=== PATIENT | female | born 1980 | race Caucasian/White ===

== ENCOUNTER 2017-09-19 14:32 | Outpatient (CLI) | payer MEDICAID | END 2017-09-19 23:59 | disposition home or self-care (01) | LOC: RAD 14:32 | PROVIDERS: ATTEND Physician Assistant Medical | DX: N13.30 Unspecified hydronephrosis (principal) | CPT/HCPCS: 76775 ==

== ENCOUNTER 2017-09-24 16:53 | Emergency (ER) | payer MEDICAID ==
[~2017-09-24] VITALS: Ht 165.1 cm; Wt 140.0 kg
[2017-09-24 17:36] LABS: BASOPHILS % (AUTO) 0 % (0-1); EOSINOPHILS # (AUTO) 0.3 X10'3 (0-0.9); EOSINOPHILS % (AUTO) 2.1 % (0-6); HEMOGLOBIN 13.8 g/dl (12.0-16.0); LYMPHOCYTES # (AUTO) 1.6 X10'3 (1.1-4.8); LYMPHOCYTES % (AUTO) 11.9 % (21-51); MEAN CORPUSCULAR HEMOGLOBIN 28.9 PG (27.0-31.0); MEAN CORPUSCULAR HGB CONC 34.4 % (33.0-36.5); MEAN CORPUSCULAR VOLUME 84.2 FL (78-98); MEAN PLATELET VOLUME 8.3 FL (7.4-10.4); MONOCYTES # (AUTO) 0.9 X10'3 (0-0.9); MONOCYTES % (AUTO) 6.4 % (2-12); NEUTROPHILS # (AUTO) 10.8 X10'3 (1.8-7.7); NEUTROPHILS % (AUTO) 79.6 % (42-75); PLATELET COUNT 263 X10'3 (140-440); RED BLOOD COUNT 4.75 X10'6 (4.20-5.60); RED CELL DISTRIBUTION WIDTH 13.6 % (11.5-14.5); WHITE BLOOD COUNT 13.5 X10'3 (4.5-11.0)
[2017-09-24 17:41] LABS: CLARITY,URINE SLIGHTLY CLOUDY (Clear); COLOR,URINE YELLOW (Yellow); GLUCOSE, URINE NEGATIVE (Neg); KETONES,URINE NEGATIVE (Neg); LEUKOCYTE ESTERASE ,URINE TRACE (Neg); NITRITES, URINE NEGATIVE (Neg); OCCULT BLOOD,URINE MODERATE (Neg); PH,URINE 5.5 (4.8-8.0); PROTEIN,URINE NEGATIVE (Neg); UROBILINOGEN,URINE 0.2 E.U/dL (0.2-1.0)
[2017-09-24 17:45] LABS: INR 0.9 INR; PROTHROMBIN TIME 9.4 SECONDS (9.0-12.0)
[2017-09-24 17:47] LABS: UA COLLECTION TYPE CLN CATCH MIDSTREAM
[2017-09-24 17:51] LABS: ALANINE AMINOTRANSFERASE 22 U/L (12-78); ALBUMIN 3.6 G/DL (3.4-5.0); ALBUMIN/GLOBULIN RATIO 0.8 (1.1-1.5); ALKALINE PHOSPHATASE 75 IU/L (46-116); ANION GAP 10 (8-16); ASPARTATE AMINO TRANSFERASE 14 U/L (10-37); BILIRUBIN,TOTAL 0.5 MG/DL (0.1-1.0); BLOOD UREA NITROGEN 19 MG/DL (7-18); BUN/CREATININE RATIO 14.6 (6.6-38.0); CALCIUM 9.2 MG/DL (8.5-10.1); CHLORIDE 102 MMOL/L (99-107); GLUCOSE 89 MG/DL (70-104); SODIUM 138 MMOL/L (135-145); TOTAL CARBON DIOXIDE 26.4 MMOL/L (24-32); TOTAL PROTEIN 8.2 G/DL (6.4-8.2); eGFR 46 ML/MIN
[2017-09-24 17:53] LABS: BACTERIA,URINE FEW /HPF (Neg); RBC,URINE NONE SEEN /HPF (0-2); SQUAMOUS EPITHELIAL CELL,UR MODERATE /LPF (FEW)
[2017-09-24] MEDS ORDERED: ketorolac trometh. 30mg/ml inj. IV ONE (20:10)
[2017-09-24] MEDS ORDERED: IBUP-1984 PO (21:31)
[2017-09-24] MEDS ORDERED: HYDR-3965 PO (21:31)
[2017-09-24] MEDS ORDERED: CIPR-259 PO (21:31)
[2017-09-24 22:05] VITALS: BP 117/78
[2017-09-25] MEDS ORDERED: FLO0.4C PO (13:28)
== END 2017-09-24 22:09 | disposition home or self-care (01) ==
LOC: ER 16:54
DX: N20.1 Calculus of ureter (principal); N23 Unspecified renal colic; Z87.891 Personal history of nicotine dependence; Z98.890 Other specified postprocedural states
CPT/HCPCS: 36415; 74176; 80053; 81001; 85025; 85610; 87088; 96374; 99285; J1885

== ENCOUNTER 2024-10-10 18:54 | Inpatient (IN) | payer MEDICAID, OTHER ==
[~2024-10-10] VITALS: Ht 162.6 cm; Wt 169.9 kg
--- NOTE | 2024-10-10 19:06 | ELECTROCARDIOGRAPH REPORT ---
[facility] Test Date: 2024-10-10 Test Time: 19:04:01 Pat Name: RAJESH CODY Department: EMERGENCY ROOM Room: Gender: F Angle Bender: CADEN : 1980 Requested By: ELI ROCHA Order Number: [id number] Reading MD: Dr. Eli Rocha Measurements Intervals Java Rate: 91 P: 27 KS: 170 QRS: 0 QRSD: 99 T: 13 QT: 356 QTc: 439 Interpretive Statements Sinus rhythm Baseline wander in lead(s) II,aVF Electronically Signed On 10-10-2024 20:25:[address] Eli Rocha Please click the below link to view image of tracing.
[2024-10-10 19:37] LABS: BASOPHILS # (AUTO) 0.1 X10'3 (0-0.2); BASOPHILS % (AUTO) 0.9 % (0-1); EOSINOPHILS # (AUTO) 0.1 X10'3 (0-0.9); HEMATOCRIT 44.8 % (35.0-45.0); HEMOGLOBIN 15.1 g/dl (12.0-16.0); LYMPHOCYTES # (AUTO) 2.5 X10'3 (1.1-4.8); LYMPHOCYTES % (AUTO) 23.1 % (21-51); MEAN CORPUSCULAR HEMOGLOBIN 29.4 PG (27.0-31.0); MEAN CORPUSCULAR HGB CONC 33.8 g/dL (33.0-36.5); MEAN PLATELET VOLUME 8.8 FL (7.4-10.4); MONOCYTES # (AUTO) 0.6 X10'3 (0-0.9); MONOCYTES % (AUTO) 5.6 % (2-12); NEUTROPHILS # (AUTO) 7.5 X10'3 (1.8-7.7); NEUTROPHILS % (AUTO) 69.4 % (42-75); PLATELET COUNT 295 X10'3 (140-440); RED BLOOD COUNT 5.15 X10'6 (4.20-5.60); RED CELL DISTRIBUTION WIDTH 13.5 % (11.5-14.5); WHITE BLOOD COUNT 10.8 X10'3 (4.5-11.0)
[2024-10-10 19:51] LABS: ALANINE AMINOTRANSFERASE 22 U/L (12-78); ALBUMIN 3.6 G/DL (3.4-5.0); ALBUMIN/GLOBULIN RATIO 0.9 (1.1-1.5); ALKALINE PHOSPHATASE 65 IU/L (46-116); ANION GAP 9 (8-16); ASPARTATE AMINO TRANSFERASE 14 U/L (10-37); BILIRUBIN,TOTAL 0.5 MG/DL (0.1-1.0); BLOOD UREA NITROGEN 13 MG/DL (7-18); BUN/CREATININE RATIO 14.4 (10.0-20.0); CALCIUM 8.9 MG/DL (8.5-10.1); CHLORIDE 105 MMOL/L (99-107); GLUCOSE 105 MG/DL (70-104); POTASSIUM 3.9 MMOL/L (3.5-5.1); SODIUM 138 MMOL/L (135-145); TOTAL CARBON DIOXIDE 23.9 MMOL/L (24-32); TOTAL PROTEIN 7.4 G/DL (6.4-8.2); eCRCL 69 ML/MIN; eGFR 68 ML/MIN
[2024-10-10 19:57] LABS: PRO BRAIN NATRIURETIC PEPTIDE 31 PG/ML (0-125)
--- NOTE | 2024-10-10 20:38 | RADIOLOGY REPORT ---
Clinical History CP Comparison None Technique: One view Without Contrast RAJESH CODY, [id number] FINDINGS: The aorta is within normal limits. The heart size is within normal limits. Lungs are clear. No di screte osseous lesion is noted. IMPRESSION: No evidence of acute cardiopulmonary disease. This report was electronically signed by Pravin Burden MD on 10/10/2024 8:35:04 PM.
--- NOTE | 2024-10-10 20:54 | Physician Documentation ---
History of Present Illness General Chief Complaint: Arm Pain Stated Complaint: LEFT SHOULDER PAIN Time Seen by MD: 20:52 Primary Medical Doctor: JOSE L Mode of Arrival: POV History of Present Illness Initial Comments 44-year-old morbidly obese female presents to the emergency department with complaints of left upper extremity pain that has precipitated with nausea. Patient reports yesterday and then today and feeling off then developed nausea this afternoon who along with left upper extremity pain that was not a reading. The pain is located in the left upper arm until just recently it is migrated to the left axilla. Denies recent illness or injury. Does however state that she was recently had her Ritalin dose increased to 30 mg and has just been started on vitamin-D supplementation. Risk factors include hypercholesterolemia, family history of coronary artery disease, morbid obesity ED in former smoker. Heart score of 3-4. He EKG upon arrival with the emergency department reassuring was sinus rhythm with a rate of [address] elevation. Medication Reconciliation Allergies: Coded Allergies: No Known Allergies (Unverified , 10/10/24) Past Medical History Past Medical History: No Pertinent History Past Surgical History: , orthopedic surgeries Alcohol Use: Rarely Drug Use: none Lives with: Family Lives In: Home Occupation: employed Review of Systems All Other Systems at this time: Reviewed and Negative Constitutional: Denies: fever, chills RESP: Denies: short of breath, cough CV: Reports: chest pain GI: Reports: nausea Musc: Denies: back pain, joint pain, joint swelling Heme: Denies: anemia Psych: Denies: anxiety, depressed, emotional problems Physical Exam Physical Exam Vital Signs: RN Vital Signs have been reviewed: Yes, Temperature: 98.4, Heart Rate: 98, Respiratory Rate: 17, BP: 173/98, Pulse Oximetry: 97, Weight: 169.900 Oxygen Flow Rate: 0 General Appearance: alert General Appearance Morbidly obese Head: normal inspection Face: normal inspection Pupils/EOM/Fundus: PERRLA, other (Bilateral lids Xanthomonas) Nose: normal inspection Neck: non-tender, full range of motion (No JVD) Respiratory: lungs clear, normal breath sounds Chest: no accessory muscle use, chest tender (Axilla pain) Cardiovascular: normal peripheral pulses, regular rate, rhythm, no edema, no gallop, no murmur; No: JVD Extremities: normal range of motion Neurologic: oriented x4 Motor / Sensory: no motor deficit, no sensory deficit Psychiatric: normal mood/affect Skin: normal color, warm/dry, rash Progress Results/Orders Results/Orders Orders - CAMERON ZAYAS PAC Vl Venous (10/10/24 ) Page Hospitalist (10/10/24 21:30) Fill Out Med Reconciliation (10/10/24 21:30) Page Hospitalist (10/10/24 21:36) Fill Out Med Reconciliation (10/10/24 21:36) Completed Orders - CAMERON ZAYAS PAC D-Dimer (10/10/24 21:15) Vital Signs 10/10/24 10/10/24 10/10/24 18:57 19:43 19:46 Temp 98.4 98.4 Pulse 88 98 Resp 16 16 17 B/P (MAP) 173/94 173/98 (123) Pulse Ox 98 97 O2 Flow Rate 0 0 Laboratory Tests Test 10/10/24 19:21 10/10/24 21:08 10/10/24 21:15 10/10/24 21:42 White Blood Count 10.8 Red Blood Count 5.15 Hemoglobin 15.1 Hematocrit 44.8 Mean Corpuscular Volume 87.0 Mean Corpuscular Hemoglobin 29.4 Mean Corpuscular Hemoglobin Concent 33.8 Red Cell Distribution Width 13.5 Platelet Count 295 Mean Platelet Volume 8.8 Neutrophils (%) (Auto) 69.4 Lymphocytes (%) (Auto) 23.1 Monocytes (%) (Auto) 5.6 Eosinophils (%) (Auto) 1.0 Basophils (%) (Auto) 0.9 Neutrophils # (Auto) 7.5 Lymphocytes # (Auto) 2.5 Monocytes # (Auto) 0.6 Eosinophils # (Auto) 0.1 Basophils # (Auto) 0.1 CBC Comment D-Dimer 0.30 D-Dimer Comment Sodium Level 138 Potassium Level 3.9 Chloride Level 105 Carbon Dioxide Level 23.9 L Anion Gap 9 Blood Urea Nitrogen 13 Creatinine 0.90 Estimated GFR/1.73 m2 68 BUN/Creatinine Ratio 14.4 Glucose Level 105 H Calcium Level 8.9 Magnesium Level 1.8 Total Bilirubin 0.5 Aspartate Amino Transf (AST/SGOT) 14 Alanine Aminotransferase (ALT/SGPT) 22 Alkaline Phosphatase 65 Total Creatine Kinase 64 Troponin I High Sensitivity < 4 L < 4 L 4 Troponin I High Sens Percent Delta Troponin I Hi Sens Absolute Change Pro-B-Type Natriuretic Peptide 31 Total Protein 7.4 Albumin 3.6 Globulin 3.8 Albumin/Globulin Ratio 0.9 L Thyroid Stimulating Hormone (TSH) 1.64 Chemistry Comments SARS-CoV-2 Antigen (Rapid) Negative Medical Decision Making Differential Diagnosis 44-year-old female presents to emergency department with concerns of left upper extremity pains that may be cardiac in etiology. ACS workup started upon arrival in the emergency department. Initial troponin reassuring, labs reassur ing and chest x-ray reassuring. Patient's heart score is four risk stratifying her for consideration of admission and further cardiac workup. Second troponin pending and additional labs ordered; TSH, D-dimer, Mag and CK. Patient's blood pressure noted to be slightly elevated which may be secondary Ritalin or /Htncoronary artery disease. We will consult with hospitalist. May di fferential this to consider include ACS, autoimmune, neuromuscular sure etiologies I can not exclude yet yes likely dissection & pulmonary embolus. Departure Disposition: 09 ADMITTED INPATIENT Admission Level of Care: Med/Surg with Tele Impression: Primary Impression: Chest pain in adult Additional Impression: Left upper limb pain Referrals: NO PRIMARY CARE PROVIDER (PCP) Signature Scribe Signature: . Attestation: . CAMERON ZAYAS PAC October 10, 2024 20:54
[2024-10-10 21:48] LABS: CREATINE KINASE 64 U/L (26-192); MAGNESIUM 1.8 MG/DL (1.5-2.4); THYROID STIMULATING HORMONE 1.64 ulU/ml (0.34-4.50)
[2024-10-10] MEDS ORDERED: mag hydrox/Alum hydrox/simeth 30ml oral suspension PO PRN (22:50)
[2024-10-10] MEDS ORDERED: potassium Cl 20 mEq SR tablet PO PRN (22:50)
[2024-10-10] MEDS ORDERED: potassium Cl 40MEQ/1/2NS 520ml 520 ML IV PRN (22:50)
[2024-10-10] MEDS ORDERED: magnesium sulf-water 2g/50mL 50 ML IV PRN (22:50)
[2024-10-10] MEDS ORDERED: acetaminophen 325mg tablet PO PRN (22:50)
[2024-10-10] MEDS ORDERED: magnesium sulf-water 4G/100mL 100 ML IV PRN (22:50)
[2024-10-10] MEDS ORDERED: magnesium hydroxide 30ml (MOM) UD suspension PO PRN (22:50)
[2024-10-10] MEDS ORDERED: magnesium Cl slow-release 64mg tablet PO PRN (22:50)
--- NOTE | 2024-10-10 22:59 | HISTORY AND PHYSICAL-Residence ---
History & Physical Providers to CC Resident Creating Document: TIKA JONES, RES ~ History of Present Illness Primary Medical Doctor: [facility] Reason for Admit\Complaint: Left arm pain History of Present Illness The patient is a 44-year-old female with past medical history of hyperlipidemia, vitamin-D deficiency, depression, anxiety, who presented to the ED with complaints of left arm pain which began around 3:00 p.m. today. It is achy in type and has decreased in intensity since then. It is not associated with chest pain, pressure, palpitations, sweating or shortness of breath. The pain increases with movement. She is morbidly obese with BMI of 64.3. She has a family history of [place], her mother had a massive heart attack at an age of 45. The patient reported that her mother did not undergo any stent placement or surgery. The patient has ADHD for which she was started on methylphenidate 30 mg daily on Friday. Allergies: Coded Allergies: No Known Allergies (Unverified , 10/10/24) Home Medications Home Medications Active Past Medical History Past Medical History ADHD Depression Hyperlipidemia Vitamin-D deficiency Past Surgical History Surgical History Comment Ankle repair surgery, right Lithotripsy for kidney stones Family history: Mother-massive [place] in her 40s. No stent placement or surgery. History of blood clots present. Father- from kidney cancer Past Social History Social History Comment The patient lives at her house with her and children. She ambulates independently without assistance. Denies alcohol, smoking or illicit drug abuse. Quit smoking nine years ago. Primary care physician-[facility] Psychiatrist-Dr. Galvin Alcohol Use: Rarely Drug Use: None Lives with: Family Lives In: Home Occupation: employed ROS All Other Systems: Reviewed and Negative ROS Reviewed in full. Negative except for pertinent positives in HPI. Exam Vitals: Vital Signs Date Time Temp Pulse Resp B/P (MAP) Pulse Ox O2 Delivery O2 Flow Rate FiO2 10/10/24 19:46 17 10/10/24 19:43 98.4 98 173/98 (123) 97 0 General: Pleasant adult female, alert and oriented x4, not in acute distress, morbidly obese Head: Normocephalic with an atraumatic Eyes: Pupils- 3mm, reacting to light, conjunctiva- anicteric, xanthelasmas present Nose and throat: No polyps, septum- normal, no mucosal ulcers Neck: Supple, no lymphadenopathy, no carotid bruit Respiratory: No use of accessory muscles of respiration, Bilateral normal vesicular breath sounds heard. No wheeze, rhochi or creps Cardiac: S1-S2 heard, rhythm regular, no gallop/murmur Abdomen: non distended, no tenderness, no organomegaly, bowel sounds - heard Extremities: no clubbing, no pedal edema, no deformities, peripheral pulses - 2+ Skin: warm and dry, no rash, no purpura Neuro: No focal deficit, gross cranial nerve exam - normal Diagnostic Data Last Recorded Lab Results: 10/10/24192010/10/241920 Diagnostic Data: Laboratory Tests Test 10/10/24 19:21 D-Dimer 0.30 MG/L FEU (0-0.50) D-Dimer Comment Advance Care Planning Advanced Care plannin - 30 Minutes Additional Plan A 44-year-old female with past medical history of ADHD, depression, hyperlipidemia, vitamin-D deficiency, presented to the ED with complaints of left arm pain. She is being admitted into the hospital for further evaluation and management. Plan: Left arm pain Rule out angina Heart score 2 No chest pain, no EKG changes, no associated symptoms. Follow up with echocardiogram and cardiac stress test tomorrow. NPO after midnight. Also follow up with ultrasound Doppler left arm and x-ray. Hold methylphenidate. Continue telemetry monitoring. The patient's mother had history of blood clots. D-dimer negative. Hypertension Likely secondary to methylphenidate. Initial blood pressure 173/94. Got down to 140s systolic without any medication. Continue follow up and hold methylphenidate. Hyperlipidemia Follow up with lipid panel and consider starting statins. Morbid obesity, BMI 64.3 Continue outpatient management. Diet modification and exercise. Follow up with lipid panel and HB A1c. ADHD and depression Medication reconciliation pending. Continue sertraline, bupropion and propranolol but hold methylphenidate. Vitamin-D deficiency Patient received vitamin D3 34506 units on Friday. Continue outpatient management. Code Status: Full code DVT Prophylaxis: Heparin subQ Analgesia/Sedation: Tylenol Lines/Tubes: PIV Nutrition: Heart healthy diet, NPO from midnight PT: Ordered Disposition: We will admit the patient into [facility]. Continue telemetry monitoring. Follow up with cardiac stress test and left arm x-ray. Tika Jones MD Internal Medicine Resident PGY-1 Date of Service: October 10, 2024 Billing Provider: TIFFANY TOLEDO MD,TIKA MON, RES October 10, 2024 22:59
[2024-10-10] MEDS: PERFLUTREN PROTEIN-A MICROSPHR (Optison) 0.22 MG/ML 3ML VIAL IV ONE (23:02)
[2024-10-10 23:10] LABS: PROTHROMBIN TIME 9.8 SECONDS (9.0-12.0)
[2024-10-10 23:19] LABS: HEMOGLOBIN A1C 5.2 % (4.5-6.2)
[2024-10-10] MEDS ORDERED: metoprolol tartrate 1mg/ml inj IV PRN (23:35)
[2024-10-10] MEDS ORDERED: SERT-432 PO (23:35)
[2024-10-10] MEDS ORDERED: aminophylline 250mg/10ml inj. IV PRN (23:35)
[2024-10-10] MEDS ORDERED: nitroGLYCERIN 0.4mg SUBLingual tab SL PRN (23:35)
[2024-10-10] MEDS ORDERED: PROP10TA10 PO (23:36)
[2024-10-10] MEDS ORDERED: METH30CP PO (23:37)
[2024-10-10 23:39] LABS: BILIRUBIN,URINE NEGATIVE (Neg); CLARITY,URINE CLOUDY (Clear); COLOR,URINE YELLOW (Yellow); GLUCOSE, URINE NEGATIVE (Neg); KETONES,URINE NEGATIVE (Neg); LEUKOCYTE ESTERASE ,URINE NEGATIVE (Neg); NITRITES, URINE NEGATIVE (Neg); OCCULT BLOOD,URINE NEGATIVE (Neg); PROTEIN,URINE NEGATIVE (Neg); UROBILINOGEN,URINE 0.2 E.U/dL (0.2-1.0)
[2024-10-10] MEDS: heparin, porcine 5000 units/ml vial SQ SCH (23:47)
[2024-10-10 23:56] LABS: URINE AMPHETAMINE SCREEN NEGATIVE (Neg); URINE BARBITUATE SCREEN NEGATIVE (Neg); URINE BENZODIAZEPINES SCREEN NEGATIVE (Neg); URINE CANNABINOID SCREEN NEGATIVE (Neg); URINE COCAINE SCREEN NEGATIVE (Neg); URINE METHADONE SCREEN NEGATIVE (Neg); URINE OPIATE SCREEN NEGATIVE (Neg); URINE PHENCYCLIDINE SCREEN NEGATIVE (Neg)
[2024-10-10 23:57] LABS: UA COLLECTION TYPE CLN CATCH MIDSTREAM
[2024-10-10 23:59] LABS: BACTERIA,URINE 2+ /HPF (Neg); RBC,URINE NONE SEEN /HPF (0-2); SQUAMOUS EPITHELIAL CELL,UR MODERATE /LPF (FEW); WBC,URINE 0-4 /HPF (0-4)
[2024-10-11] VITALS (13 sets, daily range): BP systolic 138–171; BP diastolic 61–91; PULSE 78–102; RESP 16–19; TEMP 96.8–98.2; O2SAT 93–98
[2024-10-11] LABS: AMORPHOUS PHOSPHATES 2+; CAL OXALATE CRYSTALS 1+ /HPF (NEGATIVE)
--- NOTE | 2024-10-11 00:38 | VASCULAR REPORT ---
LEFT Upper Extremity Venous Duplex Clinical History: Left upper extremity swelling Comparison: None Technique: Duplex Doppler evaluation of the venous system of the LEFT lower neck and upper extremity including color Doppler and spectral/pulsed waveform analysis was performed. Findings: The internal jugular vein demonstrates appropriate compressibility and waveform variability . The subclavian vein is patent on color Doppler evaluation without intraluminal thrombus and demonstra rogers waveform variability . The visualized portion of the brachiocephalic vein is patent on color Doppler evaluation without intr aluminal thrombus and demonstrates waveform variability . The axillary vein demonstrates appropriate compressibility and waveform variability . The brachial veins demonstrate appropriate compressibility and patency on Doppler evaluation. The basilic vein demonstrates appropriate compressibility and patency on Doppler evaluation. The cephalic vein demonstrates appropriate compressibility and patency on Doppler evaluation. Impression: 1. No venous thrombus identified in the LEFT upper extremity vessels evaluated above.
--- NOTE | 2024-10-11 00:39 | RADIOLOGY REPORT ---
CLINICAL INDICATION: left arm pain TECHNIQUE: DI HUMERUS (2VWS) Comparison: None FINDINGS: No osseous or joint abnormality identified with no fracture or dislocation. Soft tissues appear unrem arkable. IMPRESSION: No abnormality demonstrated.
[2024-10-11] MEDS: acetaminophen 325mg tablet PO PRN (03:28)
[2024-10-11 06:36] LABS: BASOPHILS # (AUTO) 0.1 X10'3 (0-0.2); BASOPHILS % (AUTO) 0.8 % (0-1); EOSINOPHILS # (AUTO) 0.1 X10'3 (0-0.9); EOSINOPHILS % (AUTO) 1.2 % (0-6); HEMATOCRIT 40.4 % (35.0-45.0); HEMOGLOBIN 13.9 g/dl (12.0-16.0); LYMPHOCYTES # (AUTO) 2.3 X10'3 (1.1-4.8); LYMPHOCYTES % (AUTO) 27.7 % (21-51); MEAN CORPUSCULAR HEMOGLOBIN 29.9 PG (27.0-31.0); MEAN CORPUSCULAR HGB CONC 34.4 g/dL (33.0-36.5); MEAN CORPUSCULAR VOLUME 86.9 FL (78-98); MEAN PLATELET VOLUME 8.9 FL (7.4-10.4); MONOCYTES # (AUTO) 0.5 X10'3 (0-0.9); MONOCYTES % (AUTO) 5.5 % (2-12); NEUTROPHILS # (AUTO) 5.4 X10'3 (1.8-7.7); NEUTROPHILS % (AUTO) 64.8 % (42-75); PLATELET COUNT 216 X10'3 (140-440); RED BLOOD COUNT 4.65 X10'6 (4.20-5.60); RED CELL DISTRIBUTION WIDTH 13.6 % (11.5-14.5); WHITE BLOOD COUNT 8.3 X10'3 (4.5-11.0)
[2024-10-11 06:53] LABS: ALANINE AMINOTRANSFERASE 19 U/L (12-78); ALBUMIN 3.2 G/DL (3.4-5.0); ALKALINE PHOSPHATASE 53 IU/L (46-116); ANION GAP 9 (8-16); ASPARTATE AMINO TRANSFERASE 14 U/L (10-37); BILIRUBIN,TOTAL 0.5 MG/DL (0.1-1.0); BLOOD UREA NITROGEN 11 MG/DL (7-18); BUN/CREATININE RATIO 13.8 (10.0-20.0); CALCIUM 8.5 MG/DL (8.5-10.1); CHLORIDE 108 MMOL/L (99-107); CHOL/HDL RATIO 4.7 (0.00-4.99); CHOLESTEROL 193 MG/DL (0-200); GLUCOSE 103 MG/DL (70-104); HDL CHOLESTEROL 41 MG/DL (35-60); LDL CHOLESTEROL 119 MG/DL (50-100); MAGNESIUM 1.8 MG/DL (1.5-2.4); POTASSIUM 3.5 MMOL/L (3.5-5.1); SODIUM 141 MMOL/L (135-145); TOTAL CARBON DIOXIDE 23.8 MMOL/L (24-32); TOTAL PROTEIN 6.5 G/DL (6.4-8.2); TRIGLYCERIDES 232 MG/DL (20-135); eCRCL 77 ML/MIN; eGFR 78 ML/MIN
[2024-10-11] MEDS: K and/or MAG REPLACEMENT MC SCH (08:00)
[2024-10-11] MEDS: propranolol 10mg tablet PO SCH (08:10)
[2024-10-11] MEDS: sertraline 25mg tablet PO SCH (10:06)
[2024-10-11] MEDS: regadenoson 0.4mg/5ml syringe IV PRN (11:04)
--- NOTE | 2024-10-11 13:06 | RADIOLOGY REPORT ---
EXAM: NM NM ROMAN SCAN History: Left arm pain Comparison Study: None TECHNIQUE: Resting myocardial perfusion imaging was performed approximately 30 minutes following the injection of 8.63 mCi of Tc-99m sestamibi. Peak pharmacologic stress, the patient was injected with 3 2.23 mCi of Tc-99m sestamibi. Gated post stress images were acquired in the supine and prone position s approximately 30 minutes after stress and left ventricular ejection fraction (LVEF) was calculated. Findings: The overall quality of the study is adequate. The left ventricular cavity is noted to be normal. There is no evidence of abnormal lung activity. Additionally, the right ventricle appears normal. Myocardial perfusion images demonstrate homogeneous tracer distribution throughout the myocardium wit h no scintigraphic evidence of myocardial ischemia or necrosis/scar. Gated imaging reveals normal thickening and wall motion with a calculated LVEF of 69 % with end-diast olic volume of 63 mL at stress. Impression: 1. No evidence of ischemia or scar. 2. Overall gated left ventricular systolic function was normal with calculated LVEF of 69 % at stress . 3. No left ventricular dilatation.
--- NOTE | 2024-10-11 15:34 | PROGRESS NOTE- Residence ---
Progress Note - Resident Providers to CC Resident Creating Document: BLANCA AMARO RES ~ Antibiotic Timeout Antibiotic Ordered?: Yes Subjective Seen and examined the patient at bedside. She endorses mild left upper arm pain and more with the movement. Endorses nausea after starting the methylphenidate 30 mg dose. Objective Vital Signs Date Time Temp Pulse Resp B/P (MAP) Pulse Ox O2 Delivery O2 Flow Rate FiO2 10/11/24 11:11 93 16 144/81 97 10/11/24 10:00 96.8 Room Air 10/11/24 04:00 0.0 Result Diagram: 10/11/2460410/11/24 06 Pleasant adult female, alert and oriented x4, not in acute distress, morbidly obese Head: Normocephalic with an atraumatic Eyes: Pupils- 3mm, reacting to light, conjunctiva- anicteric, xanthelasmas present Nose and throat: No polyps, septum- normal, no mucosal ulcers Neck: Supple, no lymphadenopathy, no carotid bruit Respiratory: No use of accessory muscles of respiration, Bilateral normal vesicular breath sounds heard. No wheeze, rhochi or creps Cardiac: S1-S2 heard, rhythm regular, no gallop/murmur Abdomen: non distended, no tenderness, no organomegaly, bowel sounds - heard Extremities: no clubbing, no pedal edema, no deformities, peripheral pulses - 2+. Left arm pain aggravated with abduction Skin: warm and dry, no rash, no purpura Neuro: No focal deficit, gross cranial nerve exam - normal Coagulation Studies Laboratory Tests Test 10/10/24 19:21 Prothrombin Time 9.8 SECONDS (9.0-12.0) INR International Normalized Ratio 1.0 INR D-Dimer 0.30 MG/L FEU (0-0.50) D-Dimer Comment Coagulation Comments Advance Care Planning Advanced Care plannin - 30 Minutes Assessment Assessment The patient is a 44-year-old female with past medical history of hyperlipidemia, vitamin-D deficiency, depression, anxiety, who presented to the ED with complaints of left arm pain which began around 3:00 p.m. today. It is achy in type and has decreased in intensity since then. It is not associated with chest pain, pressure, palpitations, sweating or shortness of breath. The pain increases with movement. She is morbidly obese with BMI of 64.3. She has a family history of [place], her mother had a massive heart attack at an age of 45. The patient reported that her mother did not undergo any stent placement or surgery. The patient has ADHD for which she was started on methylphenidate 30 mg daily on Friday. Admitted for left arm pain and hypertension for possible ACS ., Plan Plan Left arm pain likely secondary to Musculoskeletal EKG and troponins, D-dimer are negative Cardiac stress is negative for inducible ischemia and echocardiogram does not revealed reasonable motion abnormality Left upper arm ultrasound and x-ray is negative Hold methylphenidate. Blood pressures are doing okay in 138/72 after holding the methylphenidate. Hypertension Likely secondary to methylphenidate. Blood pressure downtrended to 130s Continue follow up and hold methylphenidate. Hyperlipidemia LDL is 119 10 year ASCVD risk is 1.5. And we did not started the statins Morbid obesity, BMI 64.3 Continue outpatient management. Diet modification and exercise. LDL is 119 and HB A1c is 5.2. Patient may benefit from outpatient obesity specialist services ADHD and depression Held methylphenidate and we are continuing his sertraline and propranolol Vitamin-D deficiency Patient received vitamin D3 27755 units on Friday. Continue outpatient management. Code Status: Full code DVT Prophylaxis: Heparin subQ Analgesia/Sedation: Tylenol Lines/Tubes: PIV Nutrition: Heart healthy diet PT: Ordered Blanca Amaro MD Internal Medicine Resident PGY-1 Addendum nausea present on admission likely due to starting lexapro Date of Service: October 11, 2024 Billing Provider: DOMINGO SANFORD MD Common Visit Codes: [id number] INP/OBS CARE(HIGH) BLANCA AMARO, SEBASTIÁN October 11, 2024 15:34 DOMINGO SANFORD MD October 11, 2024 21:05
--- NOTE | 2024-10-11 17:31 | CARDIOLOGY REPORT ---
APPROVED REPORT EXAM: Comprehensive 2D, Doppler, and color-flow Echocardiogram. Patient Location: 4[address] Blood Pressure: 149/61 mmHg Heart Rate: 83 bpm Rhythm: SINUS Indications CHEST PAIN HYPERLIPIDEMIA FAMILY HX HEART DISEASE Washtub Worker: none Previous echo: none 2D Dimensions RVDd 3.2 cm IVSd 1.1 (0.7-1.1cm) LVDd 4.1 cm PWd 0.9 (0.7-1.1cm) IVSs 1.5 (0.8-1.2cm) LVDs 2.3 (2.5-4.0cm) PWs 1.4 (0.8-1.2cm) LVOT Diameter 2.11 (1.8-2.4cm) LVEF(%) 75.0 (>50%) Ao Asc Diam.3.02 cm FS (%) 43.4 % SV 56.5 ml CO 5.1 L/min M-Mode Dimensions Left Atrium(MM) 3.58 (2.5-4.0cm) IVSd 0.89 (0.7-1.1cm) LVDd 4.32 (4.0-5.6cm) Aortic Root 3.09 (2.2-3.7cm) PWd 0.93 (0.7-1.1cm) Aortic Cusp Exc 1.94 (1.5-2.0cm) IVSs 1.32 cm MV EPSS 0.4 (<0.5cm) LVDs 2.68 (2.0-3.8cm) FS (%) 38 % PWs 1.52 cm ESV(Teich) 26.6 ml LVEF(%) 68 (>50%) Aortic Valve AoV Peak Anibal. 163.4 cm/s AoV VTI 30.1 cm AO Peak GR. 10.7 mmHg AO Mean GR. 6 mmHg LVOT VTI 22.28 cm LVOT Peak Anibal. 110.1 cm/s ANITHA(VTI)/BSA 2.58 cm2/m2 ANITHA (VTI) 2.58 cm2 Mitral Valve MV E Velocity 85.8 cm/s MV Peak Gr. 3 mmHg MV DECEL TIME 220 ms MV A Velocity 103.2 cm/s MV PHT 48 ms E/A Ratio 0.8 MVA (PHT) 4.58 cm2 MV VMax87.5 cm/s TDI Medial E' P. V 11.62 cm/s E/Medial E' 7.4 Tricuspid Valve TR P. Velocity 192 cm/s RAP ESTIMATE 5 mmHg TR Peak Gr. 15 mmHg RVSP 20 mmHg Pulmonary Vein S1 Velocity 43.0 cm/s D2 Velocity 46.5 cm/s PVa Uegfhtyd50.8 cm/s PVa [id number] msec LEFT VENTRICLE Normal LV size and wall thickness. Overall systolic function is normal. Overall LVEF is 70-75%. RIGHT VENTRICLE RV is normal size and function. ATRIA The left atrium size is normal. The right atrium size is normal. AORTIC VALVE Trileaflet AV appears normal without stenosis. No insufficiency. MITRAL VALVE Normal MV annulus without calcification or stenosis. Trace regurgitation. TRICUSPID VALVE TV appears structurally normal with trace regurgitation. PULMONIC VALVE Normal PV without stenosis, physiologic insufficiency. GREAT VESSELS Aortic root is normal in size. Ascending aorta is normal in size. PERICARDIUM Normal pericardium. No effusion. Other Information Study Quality: Adequate Conclusion Overall LVEF is 70-75%. Normal LV size and wall thickness. Overall systolic function is normal. RV is normal size and function. Trileaflet AV appears normal without stenosis. No insufficiency. Normal MV annulus without calcification or stenosis. Trace regurgitation. TV appears structurally normal with trace regurgitation. Normal PV without stenosis, physiologic insufficiency. Normal pericardium. No effusion.
[2024-10-11] MEDS: furosemide 40mg/4ml inj IV ONE (21:16)
[2024-10-11] MEDS: nystatin 15 GM powder TP SCH (22:08)
[2024-10-12 05:04] LABS: BASOPHILS # (AUTO) 0.1 X10'3 (0-0.2); BASOPHILS % (AUTO) 0.8 % (0-1); EOSINOPHILS # (AUTO) 0.1 X10'3 (0-0.9); EOSINOPHILS % (AUTO) 0.8 % (0-6); HEMATOCRIT 42.4 % (35.0-45.0); HEMOGLOBIN 14.2 g/dl (12.0-16.0); LYMPHOCYTES # (AUTO) 2.5 X10'3 (1.1-4.8); LYMPHOCYTES % (AUTO) 27.1 % (21-51); MEAN CORPUSCULAR HEMOGLOBIN 29.3 PG (27.0-31.0); MEAN CORPUSCULAR HGB CONC 33.6 g/dL (33.0-36.5); MEAN CORPUSCULAR VOLUME 87.2 FL (78-98); MEAN PLATELET VOLUME 8.5 FL (7.4-10.4); MONOCYTES # (AUTO) 0.6 X10'3 (0-0.9); MONOCYTES % (AUTO) 6.7 % (2-12); NEUTROPHILS # (AUTO) 5.9 X10'3 (1.8-7.7); NEUTROPHILS % (AUTO) 64.6 % (42-75); PLATELET COUNT 241 X10'3 (140-440); RED BLOOD COUNT 4.86 X10'6 (4.20-5.60); RED CELL DISTRIBUTION WIDTH 13.9 % (11.5-14.5); WHITE BLOOD COUNT 9.2 X10'3 (4.5-11.0)
[2024-10-12 05:29] LABS: ALANINE AMINOTRANSFERASE 21 U/L (12-78); ALBUMIN 3.4 G/DL (3.4-5.0); ALKALINE PHOSPHATASE 55 IU/L (46-116); ANION GAP 10 (8-16); ASPARTATE AMINO TRANSFERASE 14 U/L (10-37); BILIRUBIN,TOTAL 0.6 MG/DL (0.1-1.0); BLOOD UREA NITROGEN 9 MG/DL (7-18); BUN/CREATININE RATIO 12.5 (10.0-20.0); CALCIUM 8.2 MG/DL (8.5-10.1); CHLORIDE 105 MMOL/L (99-107); CREATININE 0.72 MG/DL (0.40-0.90); GLUCOSE 106 MG/DL (70-104); MAGNESIUM 1.8 MG/DL (1.5-2.4); POTASSIUM 3.3 MMOL/L (3.5-5.1); SODIUM 140 MMOL/L (135-145); TOTAL PROTEIN 6.9 G/DL (6.4-8.2); eCRCL 86 ML/MIN; eGFR 88 ML/MIN
[2024-10-12 06:00] VITALS: BP 150/91; PULSE 112; RESP 20; TEMP 96.6; O2SAT 98
[2024-10-12] MEDS: potassium Cl 20 mEq SR tablet PO PRN (06:07)
[2024-10-12] MEDS: lisinopril 5mg tablet PO SCH (07:46)
[2024-10-12 08:00] VITALS: RESP 20; O2SAT 98
[2024-10-12] MEDS: ondansetron/PF 4mg/2ml inj IV PRN (08:39)
[2024-10-12] MEDS: ondansetron/PF 4mg/2ml inj IV ONE (08:40)
[2024-10-12 10:00] VITALS: BP 142/97; PULSE 104; RESP 18; TEMP 98.8; O2SAT 96
[2024-10-12] MEDS: ibuprofen tablet 400 MG TABLET PO ONE (10:56)
[2024-10-12] MEDS ORDERED: FURO-150 PO (12:07)
[2024-10-12] MEDS ORDERED: IBUP-1985 PO (15:00)
--- NOTE | 2024-10-12 15:28 | DISCHARGE SUMMARY-Residence ---
Discharge Summary Providers to Resident Creating Document: BLANCA AMARO, RES ~ Discharge Summary Admission Diagnosis: ARM PAIN Hospital Course DATE OF ADMISSION: 10/10/2024 DATE OF DISCHARGE: 10/12/2024 Vascular ultrasound of left upper arm on 10/10/2024 Normal study Chest x-ray and 10/10/2024 No evidence of acute cardiopulmonary disease Humerus x-ray on 10/11/2024 No abnormality detected Echocardiogram on 10/11/2024 LEFT VENTRICLE Normal LV size and wall thickness. Overall systolic function is normal. Overall LVEF is 70-75%. RIGHT VENTRICLE RV is normal size and function. ATRIA The left atrium size is normal. The right atrium size is normal. AORTIC VALVE Trileaflet AV appears normal without stenosis. No insufficiency. MITRAL VALVE Normal MV annulus without calcification or stenosis. Trace regurgitation. TRICUSPID VALVE TV appears structurally normal with trace regurgitation. PULMONIC VALVE Normal PV without stenosis, physiologic insufficiency. GREAT VESSELS Aortic root is normal in size. Ascending aorta is normal in size. PERICARDIUM Normal pericardium. No effusion. Lexiscan on 10/11/2024 Impression: 1. No evidence of ischemia or scar. 2. Overall gated left ventricular systolic function was normal with calculated LVEF of 69 % at stress. 3. No left ventricular dilatation. Discharge Diagnosis\Comment: Left arm pain- musculoskeletal pain Nausea Acute attack of Migraine New onset hypertension Hyperlipidemia Morbid obesity of BMI 64.3 ADHD and depression Vitamin-D deficiency Operations\Procedures: None Consultants: None Complications: None Condition on DC: Stable New Medications: Furosemide (Lasix) 20 Mg Tablet 40 MG PO DAILY for 15 Days, #30 TAB Ibuprofen (Ibuprofen) 600 Mg Tablet 1 TAB PO Q8H for Headache for 10 Days, #30 TAB 0 Refills with food Continued Medications: Methylphenidate HCl (Methylphenidate ER) 30 Mg Cpbp.50.50 1 CAP PO QAM for 30 Days, #30 CAP 0 Refills Propranolol Hcl* (Inderal*) 10 Mg Tablet 1 TAB PO ONCE for 30 Days, #60 TAB Sertraline HCl (Sertraline HCl) 25 Mg Tablet 1 TAB PO DAILY for 30 Days, #30 TAB 0 Refills Discharge Summary: HPI at the time of admission per admitting physician The patient is a 44-year-old female with past medical history of hyperlipidemia, vitamin-D deficiency, depression, anxiety, migraine who presented to the ED with complaints of left arm pain which began around 3:00 p.m. today. It is achy in type and has decreased in intensity since then. It is not associated with chest pain, pressure, palpitations, sweating or shortness of breath. The pain increases with movement. She is morbidly obese with BMI of 64.3. She has a family history of VA, her mother had a massive heart attack at an age of 45. The patient reported that her mother did not undergo any stent placement or surgery. The patient has ADHD for which she was started on methylphenidate 30 mg daily on Friday Course in the hospital Left arm pain is evaluated for possible acute coronary syndrome. EKG, troponins, D-dimers are negative. Cardiac stress test with Lexiscan is negative for inducible ischemia. Echocardiogram does not revealed regional wall motion abnormalities. Left upper arm venous ultrasound and x-ray is negative. Blood pressures were initially high in 170s and we held methylphenidate. Nausea was present on admission might be due to starting Lexapro. Hypertension is noted and the blood pressure is trended down to 130s. We started the patient on Lasix 40 mg once a day dose . We did not started the patient on statins with a LDL of 119 and 10 year ASCVD risk of 1.5. She is morbidly obese with a BMI of 64.3 and we recommended for sleep studies after the discharge. A1c is 5.2. We held the methylphenidate in view of new onset of symptoms of left arm pain and hypertension and we continued sertraline and propranolol for ADHD and depression which she has had from the past. Received Subcutaneous heparin for DVT prophylaxis and Tylenol for analgesia. Treated nausea and headache of migraine with ondansetron and ibuprofen. Patient was improved sooner than expected. Examination at the time of discharge Vital Signs Date Time Temp Pulse Resp B/P (MAP) Pulse Ox O2 Delivery O2 Flow Rate FiO2 10/12/24 08:00 20 98 Room Air 0.0 10/12/24 07:46 112 10/12/24 06:00 96.6 150/91 (110) Examination Pleasant adult female, alert and oriented x4, not in acute distress, morbidly obese Head: Normocephalic with an atraumatic Eyes: Pupils- 3mm, reacting to light, conjunctiva- anicteric, xanthelasmas present Nose and throat: No polyps, septum- normal, no mucosal ulcers Neck: Supple, no lymphadenopathy, no carotid bruit Respiratory: No use of accessory muscles of respiration, Bilateral normal vesicular breath sounds heard. No wheeze, rhochi or creps Cardiac: S1-S2 heard, rhythm regular, no gallop/murmur Abdomen: non distended, no tenderness, no organomegaly, bowel sounds - heard Extremities: no clubbing, no pedal edema, no deformities, peripheral pulses - 2+. Skin: warm and dry, no rash, no purpura Neuro: No focal deficit, gross cranial nerve exam - normal Laboratory Tests Test 10/10/24 19:21 10/10/24 21:08 10/10/24 21:15 10/10/24 21:42 White Blood Count 10.8 X10'3 Red Blood Count 5.15 X10'6 Hemoglobin 15.1 g/dl Hematocrit 44.8 % Mean Corpuscular Volume 87.0 FL Mean Corpuscular Hemoglobin 29.4 PG Mean Corpuscular Hemoglobin Concent 33.8 g/dL Red Cell Distribution Width 13.5 % Platelet Count 295 X10'3 Mean Platelet Volume 8.8 FL Neutrophils (%) (Auto) 69.4 % Lymphocytes (%) (Auto) 23.1 % Monocytes (%) (Auto) 5.6 % Eosinophils (%) (Auto) 1.0 % Basophils (%) (Auto) 0.9 % Neutrophils # (Auto) 7.5 X10'3 Lymphocytes # (Auto) 2.5 X10'3 Monocytes # (Auto) 0.6 X10'3 Eosinophils # (Auto) 0.1 X10'3 Basophils # (Auto) 0.1 X10'3 CBC Comment Prothrombin Time 9.8 SECONDS INR International Normalized Ratio 1.0 INR D-Dimer 0.30 MG/L FEU D-Dimer Comment Coagulation Comments Sodium Level 138 MMOL/L Potassium Level 3.9 MMOL/L Chloride Level 105 MMOL/L Carbon Dioxide Level 23.9 MMOL/L Anion Gap 9 Blood Urea Nitrogen 13 MG/DL Creatinine 0.90 MG/DL Estimated GFR/1.73 m2 68 ML/MIN BUN/Creatinine Ratio 14.4 Glucose Level 105 MG/DL Hemoglobin A1c 5.2 % Calcium Level 8.9 MG/DL Magnesium Level 1.8 MG/DL Total Bilirubin 0.5 MG/DL Aspartate Amino Transf (AST/SGOT) 14 U/L Alanine Aminotransferase (ALT/SGPT) 22 U/L Alkaline Phosphatase 65 IU/L Total Creatine Kinase 64 U/L Troponin I High Sensitivity < 4 ng/L < 4 ng/L 4 ng/L Troponin I High Sens Percent Delta % % Troponin I Hi Sens Absolute Change ng/L ng/L Pro-B-Type Natriuretic Peptide 31 PG/ML Total Protein 7.4 G/DL Albumin 3.6 G/DL Globulin 3.8 G/DL Albumin/Globulin Ratio 0.9 Thyroid Stimulating Hormone (TSH) 1.64 ulU/ml Chemistry Comments SARS-CoV-2 Antigen (Rapid) Negative Test 10/10/24 23:13 10/11/24 06:05 10/12/24 04:41 Urine Specimen Description Cln catch midstream Urine Color Yellow Urine Clarity Cloudy Urine pH 6.0 Urine Specific [place] >=1.030 Urine Protein Negative mg/dl Urine Glucose (UA) Negative mg/dl Urine Ketones Negative mg/dl Urine Occult Blood Negative Urine Nitrite Negative Urine Bilirubin Negative Urine Urobilinogen 0.2 E.U/dL Urine Leukocyte Esterase Negative Urine RBC None seen /HPF Urine WBC 0-4 /HPF Urine Squamous Epithelial Cells Moderate /LPF Urine Calcium Oxalate Crystals 1+ /HPF Urine Amorphous Phosphates 2+ Urine Bacteria 2+ /HPF Urine Culture Indicated Not ind Volume Urine Centrifuged 10 ml Urine Comment Urine Opiates Screen Negative Urine Methadone Screen Negative Urine Fentanyl Screen Negative Urine Barbiturates Screen Negative Urine Phencyclidine Screen Negative Urine Amphetamines Screen Negative Urine Benzodiazepines Screen Negative Urine Cocaine Screen Negative Urine Cannabinoids Screen Negative Drug Screen Comment White Blood Count 8.3 X10'3 9.2 X10'3 Red Blood Count 4.65 X10'6 4.86 X10'6 Hemoglobin 13.9 g/dl 14.2 g/dl Hematocrit 40.4 % 42.4 % Mean Corpuscular Volume 86.9 FL 87.2 FL Mean Corpuscular Hemoglobin 29.9 PG 29.3 PG Mean Corpuscular Hemoglobin Concent 34.4 g/dL 33.6 g/dL Red Cell Distribution Width 13.6 % 13.9 % Platelet Count 216 X10'3 241 X10'3 Mean Platelet Volume 8.9 FL 8.5 FL Neutrophils (%) (Auto) 64.8 % 64.6 % Lymphocytes (%) (Auto) 27.7 % 27.1 % Monocytes (%) (Auto) 5.5 % 6.7 % Eosinophils (%) (Auto) 1.2 % 0.8 % Basophils (%) (Auto) 0.8 % 0.8 % Neutrophils # (Auto) 5.4 X10'3 5.9 X10'3 Lymphocytes # (Auto) 2.3 X10'3 2.5 X10'3 Monocytes # (Auto) 0.5 X10'3 0.6 X10'3 Eosinophils # (Auto) 0.1 X10'3 0.1 X10'3 Basophils # (Auto) 0.1 X10'3 0.1 X10'3 CBC Comment Sodium Level 141 MMOL/L 140 MMOL/L Potassium Level 3.5 MMOL/L 3.3 MMOL/L Chloride Level 108 MMOL/L 105 MMOL/L Carbon Dioxide Level 23.8 MMOL/L 25.0 MMOL/L Anion Gap 9 10 Blood Urea Nitrogen 11 MG/DL 9 MG/DL Creatinine 0.80 MG/DL 0.72 MG/DL Estimated GFR/1.73 m2 78 ML/MIN 88 ML/MIN BUN/Creatinine Ratio 13.8 12.5 Glucose Level 103 MG/DL 106 MG/DL Calcium Level 8.5 MG/DL 8.2 MG/DL Magnesium Level 1.8 MG/DL 1.8 MG/DL Total Bilirubin 0.5 MG/DL 0.6 MG/DL Aspartate Amino Transf (AST/SGOT) 14 U/L 14 U/L Alanine Aminotransferase (ALT/SGPT) 19 U/L 21 U/L Alkaline Phosphatase 53 IU/L 55 IU/L Total Protein 6.5 G/DL 6.9 G/DL Albumin 3.2 G/DL 3.4 G/DL Globulin 3.3 G/DL 3.5 G/DL Albumin/Globulin Ratio 1.0 1.0 Triglycerides Level 232 MG/DL Cholesterol Level 193 MG/DL LDL Cholesterol 119 MG/DL HDL Cholesterol 41 MG/DL Cholesterol/HDL Ratio 4.7 Chemistry Comments Discharge advice f/u with sleep medicine physician for sleep studies-yu fup with pcp in 1 week with daily bp monitoring records. Continue lasix 40mg once daily for 2 weeks. call 911 or visit er if emergency. New Medications: Furosemide (Lasix) 40 mg once a day Ibuprofen 600 Mg Tablet with food p.r.n. for headache Continued Medications: Methylphenidate HCl (Methylphenidate ER) 30 Mg Cpbp.50.50 Propranolol Hcl* (Inderal*) 10 Mg Tablet Sertraline HCl 25 Mg Table *Problems/Diagnosis: (1) Hyperlipidemia (2) Musculoskeletal pain of left upper extremity (3) Hypertension (4) Left upper limb pain Status: Acute (5) Nausea (6) Morbid obesity (7) ADHD (8) Depression (9) Migraine Total Time Spent on D/C: > 30 Minutes Addendum nausea likely related to recently started lexapro morbid obesity bmi 64 likely YU likely chr cor pulmonale Date of Service: October 12, 2024 Billing Provider: DOMINGO SANFORD MD Common Visit Codes: 72269-ALT/OBS DISCH DAY >30min BLANCA AMARO, RES October 12, 2024 15:05 DOMINGO SANFORD MD October 12, 2024 20:02
== END 2024-10-12 12:55 | disposition home or self-care (01) | DRG 556 ==
LOC: ER 18:56 → ED HOLD 22:53 → EDBEDREQ 10-11 03:21 → ORTHO 4S 10-11 03:49
PROVIDERS: ADMIT Internal Medicine; ATTEND Internal Medicine
PROC: 4A02XM4 Measurement of Cardiac Total Activity, External Approach (ICD-10-PCS; principal; 2024-10-11)
PROC: 3E033HZ Introduction of Radioactive Substance into Peripheral Vein, Percutaneous Approach (ICD-10-PCS; 2024-10-11)
DX: M25.512 Pain in left shoulder (principal); Z68.44 Body mass index [BMI] 60.0-69.9, adult; G43.909 Migraine, unspecified, not intractable, without status migrainosus; E66.01 Morbid (severe) obesity due to excess calories; Z20.822 Contact with and (suspected) exposure to COVID-19; F90.9 Attention-deficit hyperactivity disorder, unspecified type; I27.81 Cor pulmonale (chronic); G47.33 Obstructive sleep apnea (adult) (pediatric); E78.00 Pure hypercholesterolemia, unspecified; R07.89 Other chest pain; F32.A Depression, unspecified; E55.9 Vitamin D deficiency, unspecified; I10 Essential (primary) hypertension; Z87.891 Personal history of nicotine dependence; Z98.891 History of uterine scar from previous surgery
CPT/HCPCS: 36415; 71045; 73060; 78452; 80053; 80061; 80305; 81001; 82550; 83036; 83735; 83880; 84443; 84484; 85025; 85379; 85610; 87081; 87811; 93005; 93017; 93306; 93971; 96374; 97110; 97162; 99285; A9500; G0378; J1644; J1940; J2405; J2785

== ENCOUNTER 2025-03-08 11:19 | Day surgery (SDC) | payer OTHER ==
[2025-03-04 11:30] LABS: MEAN PLATELET VOLUME 8.9 FL (7.4-10.4); PRE OP HEMATOCRIT 44.3 % (35.0-45.0); PRE OP HEMOGLOBIN 15.1 g/dL (12.0-16.0); PRE OP PLATELET COUNT 284 X10'3 (140-440); PRE OP WHITE BLOOD COUNT 11.5 10'3 (4.8-10.8); RED CELL DISTRIBUTION WIDTH 14.0 % (11.5-14.5)
[2025-03-04 11:46] LABS: CREATININE 0.95 MG/DL (0.40-0.90); PRE OP ALT 25 U/L (30-65); PRE OP ANION GAP 13 (8-16); PRE OP AST 19 U/L (10-37); PRE OP BILIRUB, TOTAL 0.5 MG/DL (0.0-1.0); PRE OP GLUCOSE 134 MG/DL (70-104); PRE OP POTASSIUM 3.7 MMOL/L (3.4-5.1); PRE OP SODIUM 141 MMOL/L (135-145); TOTAL CARBON DIOXIDE 24.1 MMOL/L (24-32); eGFR 64 ML/MIN
[2025-03-04 12:05] LABS: HCG SERUM QL NEGATIVE
[~2025-03-08] VITALS: Ht 162.6 cm; Wt 158.0 kg
[2025-03-08] VITALS (15 sets, daily range): BP systolic 107–132; BP diastolic 58–81; PULSE 78–93; RESP 10–19; TEMP 97.1; O2SAT 90–97
[2025-03-08] MEDS: Cefazolin 3 GM/100ML NS IVPB 100 ML IV ONE (05:30)
[~2025-03-08 11:19] MED LIST: ASCO-23 PO; ATOM18CA4 PO; ATOR40TA72 PO; CALC-1215 PO; ERGO500056 PO; LISI1TAB49 PO; OMEG12002 PO; SERT-432 PO
[2025-03-08] MEDS ORDERED: LIDOcaine 1% 30ml preserv. free vial ONE (12:17)
[2025-03-08] MEDS ORDERED: BUPIVAcaine 2.5mg/ml inj 50ml vial (contains preservative) ONE (12:17)
[2025-03-08] MEDS ORDERED: BUPIVAcaine/PF 2.5mg/ml (0.25%) 10ml vial ONE (12:17)
[2025-03-08] MEDS ORDERED: BUPIVACAINE liposomal/PF 13.3 MG/ML 10mL vial IM ONE (12:17)
[2025-03-08] MEDS: ringers solution, lacted 1,000 ML IV SCH (12:28)
[2025-03-08] MEDS ORDERED: fentaNYL/PF 50MCG/1 ML 2ML syringe IV PRN (13:15)
[2025-03-08] MEDS ORDERED: labetalol 20mg/4ml (5mg/ml) syringe IV PRN (13:15)
[2025-03-08] MEDS ORDERED: hydrALAZINE 20mg/ml inj. IV PRN (13:15)
[2025-03-08] MEDS ORDERED: ringers solution, lacted 1,000 ML IV SCH (13:15)
[2025-03-08] MEDS ORDERED: ondansetron/PF 4mg/2ml inj IV PRN (13:15)
[2025-03-08] MEDS ORDERED: dexamethasone sod phosphate 4mg/ml inj. ONE (14:45)
[2025-03-08] MEDS ORDERED: desflurane 240ml liquid inh. IH ONE (14:45)
[2025-03-08] MEDS ORDERED: fentaNYL/PF 50MCG/1 ML 2ML syringe ONE (14:59)
[2025-03-08] MEDS ORDERED: midazolam 1 mg/ML 2ml injection ONE (14:59)
[2025-03-08] MEDS ORDERED: propofol inj 20 ML IV ONE (15:05)
[2025-03-08] MEDS ORDERED: LIDOcaine 1%/PF 5ML 10 MG/ML VIAL ONE (15:05)
[2025-03-08] MEDS ORDERED: acetaminophen 1,000mg/100ml IV 100 ML IV ONE (15:06)
[2025-03-08] MEDS ORDERED: ondansetron/PF 4mg/2ml inj ONE (15:06)
[2025-03-08] MEDS ORDERED: morphine 4 MG/ML inj SYRINge IV PRN (15:09)
[2025-03-08] MEDS ORDERED: rocuronium 10mg/ml inj IV ONE ×2 (15:15)
[2025-03-08] MEDS: BUPIVACAINE liposomal/PF 13.3 MG/ML 10mL vial IM ONE (15:17)
[2025-03-08] MEDS: BUPIVAcaine/PF 2.5 mg/ml (0.25%) 30ml vial IJ ONE (15:17)
[2025-03-08] MEDS: LIDOcaine 1% 30ml preserv. free vial IJ ONE (15:17)
[2025-03-08] MEDS ORDERED: labetalol 20mg/4ml (5mg/ml) syringe IV ONE (15:21)
--- NOTE | 2025-03-08 16:26 | OPERATIVE REPORT ---
Operative Report Providers to CC CC: TERELL JARAMILLO MD ~ Date of Procedure: Mar 08, 2025 Pre-Operative Diagnosis: Incisional hernia Post-Operative Diagnosis 4 cm incisional hernia Procedure Performed Robotic assisted, laparoscopic 4 cm incisional hernia repair with mesh Bilateral transversus abdominis plane nerve blocks by injection using 266 mg of Exparel Surgeon: Terell Jaramillo MD FACS Business Analyst Manager None Anesthesiologist: Mark Estes Type of Anesthesia: General Findings: 4 cm fascial defect just above the umbilicus associated with the surgical scar Wound class I Complications None Prosthetics\Implants used: 15 cm diameter coated polyester mesh Estimated Blood Loss: Minimal Specimen Removed: None Description of Procedure: Patient was brought to the operating room and identified by the nursing staff and the attending physician. Patient was placed supine and a general anesthesia was induced. Preoperative antibiotics were given. The abdomen was prepped and draped in the standard sterile fashion. Through a left subcostal stab incision the abdomen was accessed with a Veress needle technique. Abdomen was insufflated without incident. The incision was lengthened to accommodate a 12 mm optical trocar and the abdomen was entered under laparoscopic visualization. The abdomen was surveyed laparoscopically. There was an obvious fascial defect just above the umbilicus the correlated with a supraumbilical surgical scar. Under laparoscopic visualization, robotic trochars were placed in the left lateral and left lower quadrant. The da Glendy robotic arm was docked to the patient and instruments guided intra-abdominally under laparoscopic visualization. Mesh and suture were passed into the abdomen. Falciform ligament was mobilized superiorly just above the defect to allow adequate space for mesh deployment. Defect measured 4 cm in diameter. Fascial defect(s) were then reapproximated with running, long-absorbable, 0V lock suture. Good fascial apposition was obtained without significant tension. A coated polyester mesh was then fixed to the anterior abdominal wall with running, absorbable, 2/0, V lock suture. Mesh laid without wrinkles or folds. The mesh measured 15 cm in diameter The da Glendy instruments were then removed and the robot undocked from the patient. Bilateral transversus abdominis plane nerve blocks by injection were then placed under laparoscopic visualization using a combination of Marcaine and 266 mg of Exparel. Fifteen absorbable tacks were then used to flattened the midportion of the mesh so that it completely apposed to the anterior abdominal wall. The left subcostal trocar was removed and its fascia closed percutaneously with 0 Vicryl suture under laparoscopic visualization. Remaining trochars were removed after the abdomen was allowed to deflate. Skin was closed at all sites with 4-0 Monocryl sutures and dressed with sterile dressings. Patient was awakened and taken to the postanesthesia care unit in stable condition. Counts repoted as correct: Yes TERELL JARAMILLO MD Mar 08, 2025 16:26
[2025-03-08] MEDS: fentaNYL/PF 50MCG/1 ML 2ML syringe IV PRN (16:29)
[2025-03-08] MEDS: morphine 4 MG/ML inj SYRINge IV PRN (16:29)
[2025-03-08] MEDS: ketorolac trometh 30MG/ML vial 30 MG/ML VIAL IV ONE (17:06)
[2025-03-08] MEDS: oxyCODONE/APAP 5-325mg tablet PO PRN (18:15)
== END 2025-03-08 18:35 | disposition home or self-care (01) ==
LOC: PAS 11:19
PROVIDERS: ATTEND Surgery
DX: K43.2 Incisional hernia without obstruction or gangrene (principal); I10 Essential (primary) hypertension; E78.5 Hyperlipidemia, unspecified; E66.01 Morbid (severe) obesity due to excess calories; F41.9 Anxiety disorder, unspecified; F32.A Depression, unspecified; F98.8 Other specified behavioral and emotional disorders with onset usually occurring in childhood and adolescence; Z87.891 Personal history of nicotine dependence; Z79.899 Other long term (current) drug therapy; Z90.49 Acquired absence of other specified parts of digestive tract; Z98.891 History of uterine scar from previous surgery; Z98.890 Other specified postprocedural states; Z68.43 Body mass index [BMI] 50.0-59.9, adult
CPT/HCPCS: 36415; 49593; 64488; 80053; 82948; 84703; 85025; C1713; C1781; J0131; J0666; J0690; J1100; J1885; J2003; J2250; J2270; J2405; J2704; J3010; J3490; J7030; J7120; Z7506; Z7508; Z7512; A4215; A4615; A4618